=== PATIENT | male | born 1950 | race Caucasian/White ===

== ENCOUNTER → 2016-06-29 | Outpatient (CLI) | payer BC ==
[~2016-06-29] MED LIST: ALDACTONE PO; ASPIRIN EC81 M1 PO; ASPIRIN81 M2 PO; FLECAINIDE ACET50 MG PO; FUROSEMIDE40 MG PO; LIPITOR PO; LISINOPRIL20 MG PO; MAGNESIUM400 M1 PO; METOPROLOL TAR25 MG PO; PACERONE PO; POTASSIUM CHLO20 ME1 PO; PROAIR INH; SYMBICORT; SYMBICORT INH; XARELTO20 MG PO
[2016-06-29 10:49] LABS: FOLLICLE STIMULATING HORMONE 6.35 mIU/mL (1.27-19.26)
[2016-06-29 10:51] LABS: LEUTINIZING HORMONE 4.85 mIU/mL (1.24-8.62)
[2016-07-01 12:46] LABS: TESTOSTERONE FREE (PNL) 21.6 pg/mL (35.0-155.0)
== END | disposition home or self-care (01) ==
LOC: CLAB 08:30
PROVIDERS: Internal Medicine Endocrinology, Diabetes & Metabolism
DX: E29.1 Testicular hypofunction (principal)
CPT/HCPCS: 36415; 82728; 83001; 83002; 84146; 84402; 84403

== ENCOUNTER → 2017-01-04 | Outpatient (CLI) | payer MEDICARE, BC ==
--- NOTE | ~2017-01-04 | CR63 ---
[facility] A Service of [facility] RADIOLOGY TEXT RESULTS PATIENT: MARTINA FARRELL LOCATION: [facility] : 54 UNIT #: [id number] AGE: [address]: Rocio Pedro MD SEX: M ORDER DR: [id number] [facility] [address] [place], [place] [address] [id number] O MR#: [id number] Acc #: [id number] NAME: MARTINA FARRELL : 1950 SEX: M STUDY DATE/TIME: 01/04/2017 10:37 UNIT: [facility] ROOM: STUDY DESCRIPTION: CR Chest 2 View Attending Physician: Rocio Pedro M.D. Referring Physician: Rocio Pedro M.D. Ordering Physician: Rocio Pedro M.D. Primary Care Physician: Rocio Pedro M.D. MEDICAL IMAGING REPORT This report is preliminary unless electronic signature is present EXAM Chest 01/04/2017. HISTORY 66-year-old male patient short of air with history of atrial fibrillation and COPD. Symptoms x3 months. COMPARISON [facility] Two-[facility] chest demonstrates a large body habitus. Cardiomegaly is present along with a generalized vascular congestion. There are bilateral pleural effusions now present. No visible airspace infiltrate at this time. IMPRESSION Cardiomegaly with coexisting congestive heart failure. Short-interval followup recommended. Large body habitus noted. Dictated by... Williams Croft M.D. THIS IS AN ELECTRONICALLY VERIFIED REPORT Williams Croft M.D. at 01/05/2017 8:04 AM LAM/yu TD: 01/04/2017 15:02 JOB #: [id number] MEDICAL IMAGING REPORT Page 1 of 1 COPY
== END | disposition home or self-care (01) ==
LOC: CRAD 10:19
DX: R06.02 Shortness of breath (principal); I50.9 Heart failure, unspecified; I51.7 Cardiomegaly
CPT/HCPCS: 71020